=== PATIENT | male | born 1970 | race Caucasian/White ===

== ENCOUNTER 2017-03-02 19:57 | Observation (INO) | payer MEDICARE, MEDICAID ==
[~2017-03-02 19:57] MED LIST: ALBUTEROL SULF0.5 M1 IH; AMLODIPINE10 MG PO; CEFAZOLIN SODIU IV; CEPHALEXIN500 M1 PO; CHILDREN'S ASPI81 M1 PO; CORGARD20 M1 PO; CORGARD20 MG; DOCUSATE SODIUM1 TA2 PO; DURAGESIC1 EACH TD; DURAGESIC50 MCG/PAT TD; ED FLEXERI6 TAB/BOTT PO; FEROSUL325 M1 PO; FLEXERIL 1010 MG/TAB PO; GABAPENTIN100 MG; IPRATROPIUM BROM3 M1 IH; LAMICTAL 100MG100 MG PO; LAMICTAL150 MG; LEVAQUIN 5500 MG/TA1 PO; MEDI-FIRST ASP325 MG PO; MOBIC 7.5MG7.5 MG PO; NADOLOL20 M1 PO; NATURE'S BLEND F1 MG PO; NEURONTIN300 M1 PO; NEXIUM 40MG40 MG; NEXIUM 40MG40 MG PO; NEXIUM20 MG/Pack PO; NORCO 325 MG-51 TAB PO; NORVASC 5MG5 MG/TAB PO; OXYCODONE HCL10 M1 PO; PHENERGAN 25 TA25 MG PO; PRINIVIL40 MG; PROAIR RESPICL90 MCG IH; PROBIOTIC1 EAC4 PO; PROPRANOLOL HYD20 MG PO; SPIRIVA INH IH; SYMBICORT1 AE3 IH; THIAMINE HCL100 M1 PO; ULTRAM 50MG TAB50 MG PO; XANAX 0.5MG0.5 MG PO; XANAX0.5 M1 PO; XANAX0.5 MG; ZESTRIL40 M1 PO; ZESTRIL5 M1 PO
[2017-03-02 22:38] VITALS: BP 124/79
[2017-03-03] MEDS ORDERED: LISINOPRIL10 MG PO (00:52)
[2017-03-03] MEDS ORDERED: TIZANIDINE HYDRO4 MG PO (00:53)
[2017-03-03] MEDS ORDERED: ZOLOFT 50MG50 MG PO (00:55)
[2017-03-03] MEDS ORDERED: FENTANYL12.5 MCG/H TD (00:56)
[2017-03-03] MEDS ORDERED: OMEPRAZOLE40 MG PO (00:57)
[2017-03-03] MEDS ORDERED: GOOD NEIGHBOR200 M1 PO ×2 (01:01→13:07)
[2017-03-03 03:29] VITALS: BP 94/56
[2017-03-03 06:18] VITALS: BP 108/68
[2017-03-03 12:24] VITALS: BP 107/66
[2017-03-03] MEDS ORDERED: IMODIUM 2MG CAPS2 MG PO (13:08)
[2017-03-03] MEDS ORDERED: ZOFRAN ODT8 M1 PO (13:13)
== END 2017-03-03 13:20 | disposition home or self-care (01) ==
LOC: ED 19:57 → MED/SURG 21:41
PROVIDERS: ADMIT Nurse Practitioner Primary Care
DX: K52.9 Noninfective gastroenteritis and colitis, unspecified (principal); E87.1 Hypo-osmolality and hyponatremia; E86.0 Dehydration; R15.9 Full incontinence of feces; R53.1 Weakness; R11.0 Nausea; M54.9 Dorsalgia, unspecified; G89.29 Other chronic pain; J44.9 Chronic obstructive pulmonary disease, unspecified; J45.909 Unspecified asthma, uncomplicated; F17.210 Nicotine dependence, cigarettes, uncomplicated; K70.30 Alcoholic cirrhosis of liver without ascites; E11.8 Type 2 diabetes mellitus with unspecified complications; Z79.84 Long term (current) use of oral hypoglycemic drugs; I10 Essential (primary) hypertension
CPT/HCPCS: C9113; G0378; J1885; J2270; J2405; J7030; J7120

== ENCOUNTER → 2017-03-03 | Emergency (ER) | payer MEDICARE, MEDICAID ==
[~2017-03-03] MED LIST changes: +FENTANYL12.5 MCG/H TD; +GOOD NEIGHBOR200 M1 PO; +IMODIUM 2MG CAPS2 MG PO; +LISINOPRIL10 MG PO; +METOCLOPRAMIDE10 M2 PO; +OMEPRAZOLE40 MG PO; +REGLAN5 M1 PO; +TIZANIDINE HYDRO4 MG PO; +ZOFRAN ODT8 M1 PO; +ZOLOFT 50MG50 MG PO
== END ==
LOC: ED 19:38
DX: R19.7 Diarrhea, unspecified (principal); R10.9 Unspecified abdominal pain; R11.0 Nausea; M54.9 Dorsalgia, unspecified; G89.29 Other chronic pain; E11.8 Type 2 diabetes mellitus with unspecified complications; I10 Essential (primary) hypertension; Z87.891 Personal history of nicotine dependence; J44.9 Chronic obstructive pulmonary disease, unspecified; K21.9 Gastro-esophageal reflux disease without esophagitis; K70.31 Alcoholic cirrhosis of liver with ascites; Z87.442 Personal history of urinary calculi; F41.9 Anxiety disorder, unspecified; E87.1 Hypo-osmolality and hyponatremia

== ENCOUNTER 2017-03-04 08:09 | Emergency (ER) | payer MEDICARE, MEDICAID ==
[~2017-03-04 08:09] MED LIST changes: -METOCLOPRAMIDE10 M2 PO; -REGLAN5 M1 PO
[2017-03-04 09:25] VITALS: BP 134/81
== END 2017-03-04 09:25 | disposition home or self-care (01) ==
LOC: ED 08:09
DX: R11.0 Nausea (principal); G89.29 Other chronic pain; R19.7 Diarrhea, unspecified
CPT/HCPCS: J2270; J2405

== ENCOUNTER 2017-03-27 13:08 | Emergency (ER) | payer MEDICARE, MEDICAID ==
[~2017-03-27] VITALS: Wt 77.5 kg
[2017-03-27] MEDS ORDERED: REGLAN5 M1 PO (15:05)
[2017-03-27] MEDS ORDERED: NORCO 325 MG-51 TAB PO (15:05)
[2017-03-27 15:10] VITALS: BP 94/64
== END 2017-03-27 15:15 | disposition home or self-care (01) ==
LOC: ED 13:08
DX: K29.70 Gastritis, unspecified, without bleeding (principal); T39.395A Adverse effect of other nonsteroidal anti-inflammatory drugs [NSAID], initial encounter; G89.29 Other chronic pain; K70.30 Alcoholic cirrhosis of liver without ascites; F10.21 Alcohol dependence, in remission; K80.20 Calculus of gallbladder without cholecystitis without obstruction

== ENCOUNTER 2017-04-10 19:30 | Emergency (ER) | payer MEDICARE, MEDICAID ==
[~2017-04-10] VITALS: Ht 175.3 cm; Wt 72.7 kg
[~2017-04-10 19:30] MED LIST changes: +REGLAN5 M1 PO
[2017-04-10] MEDS ORDERED: METOCLOPRAMIDE10 M2 PO (20:16)
[2017-04-10 20:25] VITALS: BP 136/78
== END 2017-04-10 20:26 | disposition home or self-care (01) ==
LOC: ED 19:30
DX: K29.70 Gastritis, unspecified, without bleeding (principal); M54.9 Dorsalgia, unspecified; G89.29 Other chronic pain

== ENCOUNTER → 2017-06-21 | Outpatient (REF) ==
[~2017-06-21] MED LIST changes: +METOCLOPRAMIDE10 M2 PO
== END ==
LOC: LAB 05:20
DX: D64.9 Anemia, unspecified (principal)

== ENCOUNTER → 2017-10-05 | Outpatient (CLI) | payer MEDICARE, MEDICAID | LOC: RAD 09:08 | DX: S92.424A Nondisplaced fracture of distal phalanx of right great toe, initial encounter for closed fracture (principal); X58.XXXA Exposure to other specified factors, initial encounter ==

== ENCOUNTER 2017-11-22 19:00 | Inpatient (IN) | payer MEDICARE, MEDICAID ==
[~2017-11-22] VITALS: Ht 175.3 cm; Wt 81.8 kg
[2017-11-23 13:42] VITALS: BP 123/80
[2017-11-23 13:45] VITALS: BP 123/80
[2017-11-23 14:16] LABS: MEAN PLATELET VOLUME 8.9 fl (7.4-10.4); RED BLOOD COUNT 2.32 M/mm3 (4.20-5.60); RED CELL DISTRIBUTION WIDTH 11.7 % (11.5-14.5); WHITE BLOOD COUNT 5.1 K/mm3 (4.8-10.8)
[2017-11-23 14:40] LABS: ALBUMIN 2.7 g/dL (3.5-5.0); BUN/CREATININE RATIO 18.4 (6.0-26.0); POTASSIUM 4.3 mmol/L (3.6-5.0); TOTAL BILIRUBIN 2.2 mg/dL (0.2-1.3); TOTAL PROTEIN 6.2 g/dL (6.3-8.2)
[2017-11-23 14:46] LABS: HEMATOCRIT 22.6 % (42.0-52.0); HEMOGLOBIN 7.6 g/dL (13.5-18.0)
[2017-11-23] MEDS ORDERED: METOCLOPRAMIDE H5 M1 PO (17:35)
[2017-11-23] MEDS ORDERED: LAMOTRIGINE100 M3 PO (17:36)
[2017-11-23 18:30] VITALS: BP 111/74
[2017-11-24 00:38] VITALS: BP 151/89
[2017-11-24 06:20] VITALS: BP 147/82
[2017-11-24 07:05] LABS: PH-URINE 8.5 (5.0 - 8.0); URINE APPEARANCE CLEAR; URINE BILIRUBIN NEGATIVE (NEGATIVE); URINE BLOOD NEGATIVE (NEGATIVE); URINE COLOR YELLOW; URINE GLUCOSE NEGATIVE (NEGATIVE); URINE KETONE NEGATIVE (NEGATIVE); URINE LEUKOCYTE ESTERASE NEGATIVE (NEGATIVE); URINE MUCUS PRESENT (NOT PRESENT); URINE NITRATE NEGATIVE (NEGATIVE); URINE PROTEIN(semi-quant) NEGATIVE (NEGATIVE); URINE UROBILINOGEN 1 mg/dL (NORMAL); URINE WBC 0-1 /hpf (0-3)
[2017-11-24 18:01] VITALS: BP 138/84
[2017-11-25 06:43] VITALS: BP 113/61
[2017-11-25 18:14] VITALS: BP 121/69
[2017-11-26 06:46] VITALS: BP 114/65
[2017-11-26 18:18] VITALS: BP 129/91
[2017-11-27 06:48] VITALS: BP 115/74
[2017-11-27 19:04] VITALS: BP 139/90
[2017-11-28 06:46] VITALS: BP 123/80
[2017-11-28] MEDS ORDERED: ALBUTEROL2.5 MG/3 M IH (08:17)
[2017-11-28] MEDS ORDERED: FERROUS SU325 MG/TAB PO (08:18)
[2017-11-28] MEDS ORDERED: NORVASC 5MG5 MG/TAB PO (08:18)
[2017-11-28] MEDS ORDERED: LISINOPRIL10 MG PO (08:18)
[2017-11-28] MEDS ORDERED: TIZANIDINE HYDRO4 MG PO (08:18)
[2017-11-28] MEDS ORDERED: NEURONTIN300 M1 PO (08:19)
[2017-11-28] MEDS ORDERED: LAMOTRIGINE100 M3 PO (08:19)
[2017-11-28] MEDS ORDERED: ZOLOFT 50MG50 MG PO (08:20)
[2017-11-28] MEDS ORDERED: OMEPRAZOLE40 MG PO (08:20)
[2017-11-28] MEDS ORDERED: XANAX0.5 M1 PO (08:20)
[2017-11-28] MEDS ORDERED: ULTRAM50 M1 PO (08:21)
[2017-11-28] MEDS ORDERED: OXYCODONE PO (08:22)
== END 2017-11-28 10:05 | disposition home health service (06) | DRG 560 ==
LOC: MED/SURG 19:00
PROVIDERS: ADMIT Family Medicine
DX: Z47.1 Aftercare following joint replacement surgery (principal); E87.1 Hypo-osmolality and hyponatremia; I85.10 Secondary esophageal varices without bleeding; Z96.642 Presence of left artificial hip joint; K70.30 Alcoholic cirrhosis of liver without ascites; K21.9 Gastro-esophageal reflux disease without esophagitis; J44.9 Chronic obstructive pulmonary disease, unspecified; D64.9 Anemia, unspecified; I10 Essential (primary) hypertension; F17.200 Nicotine dependence, unspecified, uncomplicated; F10.20 Alcohol dependence, uncomplicated; E11.40 Type 2 diabetes mellitus with diabetic neuropathy, unspecified; W01.0XXD Fall on same level from slipping, tripping and stumbling without subsequent striking against object, subsequent encounter

== ENCOUNTER 2017-12-20 10:10 | Outpatient (RCR) | payer MEDICARE, MEDICAID ==
[~2017-12-20] VITALS: Ht 175.3 cm; Wt 84.2 kg
[~2017-12-20 10:10] MED LIST changes: +ALBUTEROL2.5 MG/3 M IH; +FERROUS SU325 MG/TAB PO; +LAMOTRIGINE100 M3 PO; +METOCLOPRAMIDE H5 M1 PO; +OXYCODONE PO; +ULTRAM50 M1 PO
[2017-12-20 10:25] VITALS: BP 123/80
[2017-12-20 11:20] VITALS: BP 117/75
[2017-12-21] MEDS ORDERED: SYMBICORT1 AE3 IH (10:24)
[2017-12-21] MEDS ORDERED: PROAIR HFA0.09 MG/AC IH (10:25)
[2017-12-21] MEDS ORDERED: GABAPENTIN TAB600 MG PO (10:25)
[2017-12-21] MEDS ORDERED: PROVENTIL0.09 MG/A1 IH (10:26)
[2017-12-21] MEDS ORDERED: RT SPIRIVA INH18 MCG IH (10:26)
[2017-12-21] MEDS ORDERED: CYMBALTA60 M1 PO (10:27)
[2017-12-21] MEDS ORDERED: OMEPRAZOLE40 MG PO (10:28)
[2017-12-21] MEDS ORDERED: METOCLOPRAMIDE H5 M1 PO (10:28)
[2017-12-21] MEDS ORDERED: ZESTRIL5 M1 PO (10:28)
[2017-12-21 10:29] VITALS: BP 100/67
[2017-12-21 10:57] VITALS: BP 102/61
[2017-12-22 10:20] VITALS: BP 125/87
[2017-12-22 10:49] VITALS: BP 128/74
[2017-12-23 10:58] VITALS: BP 141/93
[2017-12-23 11:01] VITALS: BP 122/77
[2017-12-24 10:00] VITALS: BP 115/77
[2017-12-24 10:45] VITALS: BP 99/74
--- NOTE | 2017-12-25 10:20 | NUR ---
PT'S RIGHT ARM FROM ELBOW DOWN TO FINGERTIPS SWOLLEN UPON ARRIVAL, SAVANNAH WRAP AROUND PICC LINE TIGHT AND REMOVED, PT DENIES NUMBNESS OR TINGLING OR PAIN TO ARM, PICC LINE FLUSHES EASILY WITH BRISK BLOOD RETURN, ARM CIRCUMFERENCE 27CM (NORMAL), NO SWELLING OR REDNESS AT PICC LINE SITE OR ABOVE
[2017-12-25 11:07] VITALS: BP 104/72
[2017-12-25 11:09] VITALS: BP 127/89
--- NOTE | 2017-12-25 11:12 | NUR ---
PT SITTING IN CHAIR THROUGHOUT INFUSION WITH ARM ELEVATED AND WARM BLANKET TO EDEMA, SWELLING APPEARS TO BE DECREASING, NEW SAVANNAH WRAP APPLIED AROUND PICC LINE SITE LOOSELY, PT STATES "THAT FEELS MUCH BETTER," PT EDUCATED TO NOTIFY [facility] IF CONTINUES TO WORSEN OR HE EXPERIENCES ANY PAIN OR REDNESS AT IV SITE, NO FURTHER COMPLICATIONS NOTED AT THIS TIME
[2017-12-26 10:15] VITALS: BP 129/89
[2017-12-26 11:00] VITALS: BP 135/93
[2017-12-27 10:05] VITALS: BP 132/78
[2017-12-27 10:38] VITALS: BP 142/78
[2017-12-28 10:10] VITALS: BP 144/87
[2017-12-28 10:40] VITALS: BP 112/67
[2017-12-30 10:10] VITALS: BP 137/74
--- NOTE | 2017-12-30 10:32 | NUR ---
Did not record arrival or d/c vitals from 12/29/17 and no longer have record of this information.
--- NOTE | 2017-12-30 10:50 | NUR ---
ONCE INFUSION COMPLETE PT AND SPOUSE REQUEST ASSISTANCE WITH HIP DRESSING CHANGE. BOTH REPORT THAT AT [facility] F/U APPT ON TUESDAY, INSTRUCTIONS GIVEN TO APPLY PRESSURE DRESSING TO L HIP UNTIL NEXT F/U APPT. REMOVE OLD DRESSING. NOTE ACTIVE SEROUS DRAINAGE FROM MID INCISION, BETWEEN YANN. CLEANSED AROUND INCISION WITH ALCOHOL, APPLIED SEVERAL GUAZE 4X4'S, COVERED WITH ABD THEN HYPAFIX TAPE TAUT, TO HOLD PRESSURE. BOTH VERBAL AND DEMONSTRATION TEACHING PERFORMED. BOTH ACKNOWLEDGE UNDERSTANDING.
[2017-12-30 11:00] VITALS: BP 136/85
[2017-12-31 10:30] VITALS: BP 121/68
[2017-12-31 10:55] VITALS: BP 94/59
[2018-01-01 10:31] VITALS: BP 95/52
[2018-01-01 10:52] VITALS: BP 90/56
[2018-01-02 10:35] VITALS: BP 108/66
[2018-01-02 11:00] VITALS: BP 103/62
--- NOTE | 2018-01-02 13:17 | NUR ---
Called [facility] regarding which provider will be following this patient's outpatient IV antibiotic and weekly labs. Per orders sent from [facility], questions regarding IV antibiotic and lab results are to be sent to Dr. Beach. Dr. Beach was contacted via phone by [employer] 12/26/17 to report critical lab values. Dr. Beach has stated to computer lab assistant that he is not following this patient. Message left with Dr. Chacho Rodriguez's nurse for clarification.
--- NOTE | 2018-01-02 14:50 | NUR ---
Marylu Luis APRN returned phone call, states that she is unsure what provider is following this patient in regards to infectious disease. She states that Dr. Beach usually consults while the patient is an inpatient, then Dr. Thomas follows the patient as an outpatient. Susi Luis APRN states that she will look through the [facility] medical record for Dr. Chandler progress note, and speak with Dr. Chacho Rodriguez's nurse then call back with an update on which provider to fax weekly labs to.
--- NOTE | 2018-01-02 15:11 | NUR ---
Dr. Flor's nurse Jennifer notified of critical lab values. Per Margaret, weekly labs are to be faxed to [facility] as well as patient's PCP Dr. Hurley until further notice.
[2018-01-03 10:12] VITALS: BP 122/76
--- NOTE | 2018-01-03 16:45 | NUR ---
This nurse spoke with Jennifer at Dr. Flor office who reports Dr. Chacho santiagont signing orders as he wants us to try to contact Dr. Beach again and have him sign orders and follow pt.
--- NOTE | 2018-01-03 17:36 | NUR ---
THIS NURSE SPEAKS WITH ANNELIESE FROM DR BOLAND OFFICE WHO CALLS BACK WITH ORDERS FROM DR ORTEZ TO FAX ALL PT INFO TO DR OLSON AND THEY ARE SENDING REFERALL AND MAKING PT FOLLOW UP APPT WITH DR OLSON
[2018-01-04 10:30] VITALS: BP 116/68
--- NOTE | 2018-01-04 10:32 | NUR ---
THIS PATIENT ARRIVES TODAY PER W/C FROM [facility] [place], HE IS ALERT, ORIENTED, DURING ASSESSEMNT IT IS NOTED HE HAS 3-4+ PITTING EDEMA TO BOTH LOWER LEGS, HE IS ENCOURAGED TO ELEVATE LEGS WHEN POSSIBLE, HE STATES HE TRIES, ALSO HE IS SUPPOSED TO BE HAVING [facility] AGAIN BUT SEEMS UNABLE TO CONNECT [facility], STATING "WELL THEY WANTED TO COME THIS MORNING BUT I TOLD THEM I HAD THIS AND THEN IM GOING TO THE HIP DOCTOR, SO I CANT SEE THEM TODAY", HE ALSO IS ASKED ABOUT HIS ALCOHOL CONSUMPTION WHICH HE RESPONDS, "IM TRYING TO WEABN MYSELF OFF, AND ITS HARD", THIS NURSE RESPONDS "THE ONLY REASON I ASK IS THAT THE ANTIBIOTICS EFFECTIVENESS IS REDUCED WITH ALCOHOL CONSUMPTION" AGAIN HE RESPONDS HE IS TRYING. HE IS ENCOURAGD TO SPEAK WITH HIS PRIMARY ABOUT HIS LEG EDEMA
[2018-01-04 10:51] VITALS: BP 122/68
[2018-01-05 10:12] VITALS: BP 100/74
[2018-01-05 10:41] VITALS: BP 100/66
[2018-01-06 10:08] VITALS: BP 130/73
[2018-01-06 11:06] VITALS: BP 101/69
[2018-01-07 10:18] VITALS: BP 118/83
[2018-01-07 11:00] VITALS: BP 99/65
[2018-01-08 10:07] VITALS: BP 106/75
[2018-01-08 10:36] VITALS: BP 97/57
[2018-01-09 10:22] VITALS: BP 115/79
[2018-01-09 10:49] VITALS: BP 119/76
[2018-01-10 10:18] VITALS: BP 135/85
[2018-01-10 10:57] VITALS: BP 114/76
[2018-01-11 10:05] VITALS: BP 123/79
[2018-01-11 10:44] VITALS: BP 114/83
[2018-01-12 10:17] VITALS: BP 113/74
[2018-01-13 10:12] VITALS: BP 137/87
[2018-01-13 10:37] VITALS: BP 109/75
[2018-01-14 10:03] VITALS: BP 103/63
[2018-01-14 10:52] VITALS: BP 100/65
[2018-01-15 10:02] VITALS: BP 120/56
[2018-01-15 10:51] VITALS: BP 103/63
[2018-01-16 10:15] VITALS: BP 111/76
[2018-01-16 10:48] VITALS: BP 118/70
[2018-01-17 11:41] VITALS: BP 120/83
[2018-01-18 10:02] VITALS: BP 96/64
[2018-01-18 10:40] VITALS: BP 91/52
[2018-01-19 10:35] VITALS: BP 109/68
[2018-01-19 11:18] VITALS: BP 112/64
[2018-01-20 10:18] VITALS: BP 89/94
[2018-01-20 10:45] VITALS: BP 93/55
[2018-01-21 10:18] VITALS: BP 121/73
[2018-01-21 10:45] VITALS: BP 100/65
--- NOTE | 2018-01-21 10:50 | NUR ---
Pt leaves via w/c. Pt reports that he may be in a little later tomorrow - around noon possibly. Pt verbalizes understanding to keep routine time as much as possible and vary only occasionally.
[2018-01-22 10:24] VITALS: BP 150/97
[2018-01-22 11:06] VITALS: BP 119/75
[2018-01-23 10:14] VITALS: BP 127/85
[2018-01-23 10:39] VITALS: BP 132/88
[2018-01-24 10:19] VITALS: BP 106/58
[2018-01-25 10:12] VITALS: BP 133/88
[2018-01-25 10:43] VITALS: BP 133/80
[2018-01-26 10:13] VITALS: BP 73/45
[2018-01-26 10:15] VITALS: BP 73/45
[2018-01-26 10:50] VITALS: BP 74/42
--- NOTE | 2018-01-26 10:50 | NUR ---
Pt states that he had contaced Dr. Hurley concerning low blood pressure this am and that Dr. Hurley was wanting blood pressures for the past 2 weeks faxed to his office. This nurse offeres to call Dr. Hurley's office to report low blood pressure to see if there would be any further orders. Pt refuses nurses offer stating that doctors office would call him at home. BLood pressures were faxed to Dr. Jamison's office per pt request. Pt does states that he took Lisinopril and 2 oxycodone prior to coming for outpt therapy.
[2018-01-27 10:50] VITALS: BP 111/69
[2018-01-27 11:06] VITALS: BP 120/80
[2018-01-28 10:04] VITALS: BP 136/81
[2018-01-28 10:55] VITALS: BP 124/88
[2018-01-29 10:03] VITALS: BP 134/87
[2018-01-30 10:37] VITALS: BP 127/86
== END 2018-01-30 12:00 | disposition home or self-care (01) ==
LOC: AMSURD 10:10
DX: A41.01 Sepsis due to Methicillin susceptible Staphylococcus aureus (principal); Z45.2 Encounter for adjustment and management of vascular access device; Z95.9 Presence of cardiac and vascular implant and graft, unspecified
CPT/HCPCS: J0696; J1644

== ENCOUNTER → 2017-12-26 | Outpatient (CLI) | payer MEDICARE, MEDICAID ==
[2017-12-25 11:09] VITALS: BP 127/89
[~2017-12-26] MED LIST changes: +CYMBALTA60 M1 PO; +GABAPENTIN TAB600 MG PO; +PROAIR HFA0.09 MG/AC IH; +PROVENTIL0.09 MG/A1 IH; +RT SPIRIVA INH18 MCG IH
[2017-12-27 09:54] LABS: ALBUMIN 2.2 g/dL (3.5-5.0); BUN/CREATININE RATIO 14.5 (6.0-26.0); CALCIUM 7.9 mg/dL (8.4-10.2); POTASSIUM 3.8 mmol/L (3.6-5.0); TOTAL BILIRUBIN 1.3 mg/dL (0.2-1.3); TOTAL PROTEIN 6.1 g/dL (6.3-8.2)
[2017-12-27 09:55] LABS: HEMOGLOBIN 7.5 g/dL (13.5-18.0); MEAN PLATELET VOLUME 9.5 fl (7.4-10.4); RED BLOOD COUNT 2.49 M/mm3 (4.20-5.60); RED CELL DISTRIBUTION WIDTH 14.1 % (11.5-14.5); WHITE BLOOD COUNT 7.7 K/mm3 (4.8-10.8)
== END ==
LOC: LAB 10:10
PROVIDERS: Physician Assistant
DX: T84.52XA Infection and inflammatory reaction due to internal left hip prosthesis, initial encounter (principal)

== ENCOUNTER → 2018-01-02 | Outpatient (CLI) | payer MEDICARE, MEDICAID ==
[2018-01-01 10:52] VITALS: BP 90/56
[2018-01-02 12:04] LABS: HEMATOCRIT 23.5 % (42.0-52.0); HEMOGLOBIN 7.6 g/dL (13.5-18.0); RED BLOOD COUNT 2.47 M/mm3 (4.20-5.60); RED CELL DISTRIBUTION WIDTH 14.7 % (11.5-14.5); WHITE BLOOD COUNT 5.3 K/mm3 (4.8-10.8)
[2018-01-02 12:23] LABS: ALBUMIN 2.4 g/dL (3.5-5.0); BUN/CREATININE RATIO 15.6 (6.0-26.0); CALCIUM 7.4 mg/dL (8.4-10.2); POTASSIUM 3.9 mmol/L (3.6-5.0); TOTAL BILIRUBIN 0.6 mg/dL (0.2-1.3); TOTAL PROTEIN 6.4 g/dL (6.3-8.2)
== END ==
LOC: LAB 10:07
PROVIDERS: Internal Medicine Infectious Disease
DX: T84.52XA Infection and inflammatory reaction due to internal left hip prosthesis, initial encounter (principal)

== ENCOUNTER → 2018-01-09 | Outpatient (CLI) | payer MEDICARE, MEDICAID ==
[2018-01-08 10:36] VITALS: BP 97/57
[2018-01-09 10:43] LABS: HEMATOCRIT 26.7 % (42.0-52.0); HEMOGLOBIN 8.2 g/dL (13.5-18.0); MEAN PLATELET VOLUME 9.2 fl (7.4-10.4); RED BLOOD COUNT 2.73 M/mm3 (4.20-5.60); WHITE BLOOD COUNT 3.2 K/mm3 (4.8-10.8)
[2018-01-09 10:49] LABS: ALBUMIN 2.5 g/dL (3.5-5.0); BUN/CREATININE RATIO 12.1 (6.0-26.0); CALCIUM 7.9 mg/dL (8.4-10.2); POTASSIUM 3.9 mmol/L (3.6-5.0); TOTAL BILIRUBIN 0.7 mg/dL (0.2-1.3); TOTAL PROTEIN 6.6 g/dL (6.3-8.2)
== END ==
LOC: AMSURD 10:18 → LAB 10:18
PROVIDERS: Family Medicine
DX: T84.52XA Infection and inflammatory reaction due to internal left hip prosthesis, initial encounter (principal)

== ENCOUNTER → 2018-01-16 | Outpatient (CLI) | payer MEDICARE, MEDICAID ==
[2018-01-15 10:51] VITALS: BP 103/63
[2018-01-16 10:33] LABS: ALBUMIN 2.8 g/dL (3.5-5.0); BUN/CREATININE RATIO 18.2 (6.0-26.0); CALCIUM 8.2 mg/dL (8.4-10.2); TOTAL BILIRUBIN 0.5 mg/dL (0.2-1.3); TOTAL PROTEIN 7.1 g/dL (6.3-8.2)
[2018-01-16 10:36] LABS: HEMATOCRIT 27.9 % (42.0-52.0); MEAN CELL VOLUME 96 fl (78-100); MEAN CORPUSCULAR HEMOGLOBIN 31 pg (27-31); MEAN CORPUSCULAR HGB CONC 32 g/dL (33-37); MEAN PLATELET VOLUME 9.8 fl (7.4-10.4); PLATELET COUNT 229 K/mm3 (130-400); RED BLOOD COUNT 2.92 M/mm3 (4.20-5.60); RED CELL DISTRIBUTION WIDTH 14.4 % (11.5-14.5); WHITE BLOOD COUNT 4.2 K/mm3 (4.8-10.8)
[2018-01-16 11:23] LABS: LYMPHOCYTE 17 % (20-51); MONOCYTE 9 % (3-10); NEUTROPHILS 72 % (42-75)
[2018-01-16 11:29] LABS: ERYTHROCYTE SEDIMENTATION RATE 80 mm/hr (0-15)
== END ==
LOC: LAB 09:41
PROVIDERS: Family Medicine
DX: T84.52XA Infection and inflammatory reaction due to internal left hip prosthesis, initial encounter (principal)

== ENCOUNTER → 2018-01-23 | Outpatient (CLI) | payer MEDICARE, MEDICAID ==
[2018-01-22 11:06] VITALS: BP 119/75
[2018-01-23 11:36] LABS: ALBUMIN 2.9 g/dL (3.5-5.0); BUN/CREATININE RATIO 15.4 (6.0-26.0); CALCIUM 8.1 mg/dL (8.4-10.2); TOTAL BILIRUBIN 0.5 mg/dL (0.2-1.3); TOTAL PROTEIN 7.1 g/dL (6.3-8.2)
[2018-01-23 11:39] LABS: HEMATOCRIT 28.9 % (42.0-52.0); HEMOGLOBIN 9.2 g/dL (13.5-18.0); MEAN CELL VOLUME 95 fl (78-100); MEAN CORPUSCULAR HEMOGLOBIN 30 pg (27-31); MEAN CORPUSCULAR HGB CONC 32 g/dL (33-37); MEAN PLATELET VOLUME 9.8 fl (7.4-10.4); PLATELET COUNT 222 K/mm3 (130-400); RED BLOOD COUNT 3.05 M/mm3 (4.20-5.60); RED CELL DISTRIBUTION WIDTH 13.6 % (11.5-14.5)
[2018-01-23 13:12] LABS: LYMPHOCYTE 12 % (20-51); MONOCYTE 7 % (3-10); NEUTROPHILS 75 % (42-75)
[2018-01-23 13:13] LABS: ERYTHROCYTE SEDIMENTATION RATE 80 mm/hr (0-15)
== END ==
LOC: LAB 10:00
PROVIDERS: Internal Medicine Infectious Disease
DX: T84.52XA Infection and inflammatory reaction due to internal left hip prosthesis, initial encounter (principal)

== ENCOUNTER → 2018-01-30 | Outpatient (CLI) | payer MEDICARE, MEDICAID ==
[2018-01-29 10:03] VITALS: BP 134/87
[2018-01-30 11:19] LABS: HEMATOCRIT 28.6 % (42.0-52.0); HEMOGLOBIN 9.3 g/dL (13.5-18.0); MEAN CELL VOLUME 95 fl (78-100); MEAN CORPUSCULAR HEMOGLOBIN 31 pg (27-31); MEAN CORPUSCULAR HGB CONC 33 g/dL (33-37); MEAN PLATELET VOLUME 9.4 fl (7.4-10.4); PLATELET COUNT 172 K/mm3 (130-400)
[2018-01-30 11:33] LABS: CALCIUM 7.9 mg/dL (8.4-10.2); TOTAL BILIRUBIN 0.3 mg/dL (0.2-1.3); TOTAL PROTEIN 7.3 g/dL (6.3-8.2)
[2018-01-30 12:20] LABS: ERYTHROCYTE SEDIMENTATION RATE 55 mm/hr (0-15)
== END ==
LOC: LAB 10:05
PROVIDERS: Internal Medicine Infectious Disease
DX: A41.01 Sepsis due to Methicillin susceptible Staphylococcus aureus (principal)

== ENCOUNTER → 2018-12-11 | Outpatient (CLI) | payer MEDICARE, MEDICAID | LOC: LAB 11:06 | DX: E87.1 Hypo-osmolality and hyponatremia (principal); K70.30 Alcoholic cirrhosis of liver without ascites; K80.80 Other cholelithiasis without obstruction; R10.84 Generalized abdominal pain; R19.4 Change in bowel habit ==

== ENCOUNTER 2019-03-29 19:24 | Emergency (ER) | payer MEDICARE, MEDICAID ==
[2019-03-29 19:44] LABS: MEAN CELL VOLUME 99 fl (78-100); MEAN CORPUSCULAR HEMOGLOBIN 34 pg (27-31); MEAN CORPUSCULAR HGB CONC 34 g/dL (33-37); MEAN PLATELET VOLUME 9.7 fl (7.4-10.4); PLATELET COUNT 76 K/mm3 (130-400); RED BLOOD COUNT 3.22 M/mm3 (4.20-5.60); RED CELL DISTRIBUTION WIDTH 12.9 % (11.5-14.5); WHITE BLOOD COUNT 8.3 K/mm3 (4.8-10.8)
[2019-03-29 20:06] LABS: ALBUMIN 2.6 g/dL (3.5-5.0); CALCIUM 8.5 mg/dL (8.4-10.2); LYMPHOCYTE 11 % (20-51); MONOCYTE 5 % (3-10); NEUTROPHILS 83 % (42-75); TOTAL BILIRUBIN 2.5 mg/dL (0.2-1.2)
[2019-03-29] MEDS ORDERED: MELOXICAM7.5 MG PO (20:45)
[2019-03-29] MEDS ORDERED: DURAGESIC50 MCG/PAT TD (20:45)
[2019-03-29] MEDS ORDERED: TIZANIDINE HYDRO4 MG PO (20:46)
[2019-03-29] MEDS ORDERED: ZOFRAN ODT4 MG PO (20:47)
[2019-03-29 21:16] LABS: PH-URINE 6.5 (5.0 - 8.0); URINE APPEARANCE CLEAR; URINE COLOR YELLOW
[2019-03-29 21:21] LABS: URINE BILIRUBIN NEGATIVE (NEGATIVE); URINE BLOOD NEGATIVE (NEGATIVE); URINE GLUCOSE NEGATIVE (NEGATIVE); URINE KETONE NEGATIVE (NEGATIVE); URINE LEUKOCYTE ESTERASE NEGATIVE (NEGATIVE); URINE NITRATE NEGATIVE (NEGATIVE); URINE PROTEIN(semi-quant) NEGATIVE (NEGATIVE); URINE UROBILINOGEN NORMAL (NORMAL); URINE WBC 0-1 /hpf (0-3)
[2019-03-29 21:22] LABS: URINE MUCUS PRESENT (NOT PRESENT)
[2019-03-29 22:18] VITALS: BP 101/62
== END 2019-03-29 22:18 | disposition home or self-care (01) ==
LOC: ED 19:24
PROVIDERS: Nurse Practitioner
DX: D69.6 Thrombocytopenia, unspecified (principal); E87.1 Hypo-osmolality and hyponatremia; M54.9 Dorsalgia, unspecified; G89.29 Other chronic pain; Z98.890 Other specified postprocedural states
CPT/HCPCS: J7030

== ENCOUNTER → 2019-04-13 | Outpatient (CLI) | payer MEDICARE, MEDICAID ==
[2019-03-29 22:18] VITALS: BP 101/62
[~2019-04-13] MED LIST changes: +MELOXICAM7.5 MG PO; +ZOFRAN ODT4 MG PO
== END ==
LOC: LAB 17:40
DX: R19.7 Diarrhea, unspecified (principal)